=== PATIENT | female | born 1990 ===

== ENCOUNTER 2017-03-19 02:14 | Emergency (ER) | payer MEDICAID ==
[2017-03-19 02:14] VITALS: BMI 34.2
[2017-03-19 02:31] VITALS: BP 110/63; PULSE 92; RESP 15; TEMP 98.7; O2SAT 98
--- NOTE | 2017-03-19 02:48 | ED PDOC ---
HPI: Abdomen Time Seen by Provider: 03/19/17 02:27 Chief Complaint (Nursing): Abdominal Pain Chief Complaint (Provider): Abdominal Pain History Per: Patient History/Exam Limitations: no limitations Onset/Duration Of Symptoms: Mins (CARDIOLOGY TECH) Outside of [place] travel?: No Current Symptoms Are (Timing): Better Pain Scale Rating Of: 2 (10 at start, 2 by time of ED arrival) Location Of Pain/Discomfort: Epigastric Quality Of Discomfort: Burning Additional Complaint(s): 27 year old female presents to ED with complaints of epigastric burning pain status post eating spicy red sauce CARDIOLOGY TECH. Patient states that the pain was so severe that she called EMS, but by the time she arrived at the ED the pain level decreased from a 10 to a 2. Notes that discovery of yesterday. ( -) lower abdominal pain, vaginal bleeding, or vaginal discharge. PCP: JULIANA Abnormal Vaginal Bleeding: No Past Medical History Reviewed: Historical Data, Nursing Documentation, Vital Signs Vital Signs: Last Vital Signs Temp 98.7 F 03/19/17 02:28 Pulse 92 H 03/19/17 02:28 Resp 15 03/19/17 02:28 BP 110/63 03/19/17 02:28 Pulse Ox 98 03/19/17 02:51 - Family History Family History: States: Unknown Family Hx - Home Medications Home Medications: Ambulatory Orders Medication Instructions Recorded Ibuprofen 800 mg PO Q6 11/30/15 Docusate [Colace] 100 mg PO BID #60 cap 12/01/15 Magnesium Citrate [Citrate of 300 ml PO ONCE PRN #1 solution 12/01/15 Magnesia] Cephalexin [Keflex] 500 mg PO TID #15 capsule 08/28/16 Phenazopyridine HCl [Pyridium] 100 mg PO BID PRN #6 tablet 08/28/16 Metronidazole [Flagyl] 500 mg PO BID #14 tablet 10/23/16 Famotidine [Pepcid] 20 mg PO BID #20 tab 03/19/17 Multivit/Folic Acid/I 1 tab PO DAILY #30 tab 03/19/17 [ Plus] - Allergies Allergies/Adverse Reactions: Allergies Allergy/AdvReac Type Severity Reaction Status Date / Time No Known Allergies Allergy Verified 09/24/16 20:26 Review of Systems ROS Statement: Except As Marked, All Systems Reviewed And Found Negative Gastrointestinal: Positive for: Abdominal Pain ((+) epigastric pain, (-) lower abdominal pain) Genitourinary Female: Negative for: Vaginal Discharge, Vaginal Bleeding Physical Exam - Reviewed Nursing Documentation Reviewed: Yes Vital Signs Reviewed: Yes - Physical Exam Appears: Positive for: Non-toxic, No Acute Distress Skin: Positive for: Normal Color, Warm, Dry Cardiovascular/Chest: Positive for: Regular Rate, Rhythm Respiratory: Positive for: Normal Breath Sounds. Negative for: Respiratory Distress Gastrointestinal/Abdominal: Positive for: Normal Exam, Soft. Negative for: Tenderness Extremity: Negative for: Deformity Neurologic/Psych: Positive for: Alert, Oriented. Negative for: Motor/Sensory Deficits - ECG O2 Sat by Pulse Oximetry: 98 (RA) Pulse Ox Interpretation: Normal Medical Decision Making Medical Decision Makin Initial impression: GERD and Initial plan: * Pepcid 10mg PO 0245 Patient is declining US at this time and will follow up with [facility]. Patient is medically stable for discharge. Scribe Attestation: Documented by Sheila Kumar acting as a scribe for Jaspreet Elizondo MD. Scribe Attestation: All medical record entries made by the Scribe were at my direction and personally dictated by me. I have reviewed the chart and agree that the record accurately reflects my personal performance of the history, physical exam, medical decision making, and the department course for this patient. I have also personally directed, reviewed, and agree with the discharge instructions and disposition. Disposition - Clinical Impression Clinical Impression: Epigastric pain - Disposition [facility] Disposition: Routine/Home Disposition Time: 02:45 Condition: STABLE Prescriptions: Famotidine [Pepcid] 20 mg PO BID #20 tab Multivit/Folic Acid/I [ Plus] 1 tab PO DAILY #30 tab Instructions: (ED), Gastroesophageal Reflux Disease (ED)
== END 2017-03-19 02:55 | disposition home or self-care (01) ==
LOC: H.ER 02:14
DX: K21.9 Gastro-esophageal reflux disease without esophagitis (principal); Z33.1 Pregnant state, incidental; R10.13 Epigastric pain

== ENCOUNTER 2017-03-29 16:51 | Emergency (ER) | payer MEDICAID ==
[2017-03-29 16:53] VITALS: BMI 34.2
[2017-03-29 17:08] VITALS: PULSE 105; RESP 20; TEMP 98.2; O2SAT 98
[2017-03-29 18:31] VITALS: BP 109/72
--- NOTE | 2017-03-29 18:33 | ED PDOC ---
HPI: Female Pain Time Seen by Provider: 03/29/17 17:51 Chief Complaint (Nursing): Female Genitourinary Chief Complaint (Provider): Vaginal bleeding in History Per: Patient History/Exam Limitations: no limitations Onset/Duration Of Symptoms: Days (3) Current Symptoms Are (Timing): Still Present Additional Complaint(s): presents with vaginal bleeding x 3 days. Pt states she had a (+) test 2 weeks ago. LMP 02/11/17. Pt reports mild suprapubic cramping. Pt reports seeing clots today and reports bleeding less than menses. Abnormal Vaginal Bleeding: Yes Past Medical History Reviewed: Historical Data, Nursing Documentation, Vital Signs Vital Signs: Last Vital Signs Temp 98.2 F 03/29/17 17:04 Pulse 105 H 03/29/17 17:04 Resp 20 03/29/17 17:04 BP 109/72 03/29/17 18:14 Pulse Ox 98 03/29/17 17:04 - Medical History PMH: No Chronic Diseases - Surgical History Surgical History: No Surg Hx - Family History Family History: States: Unknown Family Hx - Living Arrangements Living Arrangements: With Family - Social History Current smoker - smoking cessation education provided: No Alcohol: None Drugs: Denies - Home Medications Home Medications: Ambulatory Orders Medication Instructions Recorded No Known Home Med 03/29/17 - Allergies Allergies/Adverse Reactions: Allergies Allergy/AdvReac Type Severity Reaction Status Date / Time No Known Allergies Allergy Verified 03/29/17 17:48 Review of Systems ROS Statement: Except As Marked, All Systems Reviewed And Found Negative Genitourinary Female: Positive for: Vaginal Bleeding, Pelvic Pain Physical Exam - Reviewed Nursing Documentation Reviewed: Yes Vital Signs Reviewed: Yes - Physical Exam Appears: Positive for: Well, Non-toxic, No Acute Distress Head Exam: Positive for: ATRAUMATIC, NORMAL INSPECTION, NORMOCEPHALIC Skin: Positive for: Normal Color, Warm, DRY Eye Exam: Positive for: Normal appearance ENT: Positive for: Normal ENT Inspection Neck: Positive for: Normal, Painless ROM Cardiovascular/Chest: Positive for: Regular Rate, Rhythm Respiratory: Positive for: Normal Breath Sounds. Negative for: Accessory Muscle Use, Respiratory Distress Gastrointestinal/Abdominal: Positive for: Normal Exam, Bowel Sounds, Soft. Negative for: Tenderness Back: Positive for: Normal Inspection Extremity: Positive for: Normal ROM Neurologic/Psych: Positive for: Alert, Oriented - Laboratory Results Result Diagrams: 03/29/17 18:18 03/29/17 18:18 Urine POC: Positive - ECG O2 Sat by Pulse Oximetry: 98 Medical Decision Making Medical Decision Making: Endorsed pending US at 2000. Disposition - Clinical Impression Clinical Impression: Vaginal bleeding in - Patient ED Disposition Is Patient to be Admitted: Transfer of Care - Disposition Disposition: Transfer of Care Disposition Time: 19:52 Condition: GOOD
[2017-03-29 18:36] LABS: HEMATOCRIT 38.5 % (34.0-47.0); MEAN CELL VOLUME 84.2 fl (81.0-99.0); MEAN CORPUSCULAR HEMOGLOBIN 27.6 pg (27.0-31.0); MEAN CORPUSCULAR HGB CONC 32.8 g/dL (33.0-37.0); RED CELL DISTRIBUTION WIDTH 12.7 % (11.5-14.5); WHITE BLOOD COUNT 7.4 K/uL (4.8-10.8)
[2017-03-29 18:42] LABS: ALB/GLOB RATIO 1.3 (1.0-2.1); ALKALINE PHOSPHATASE 47 U/L (38-126); ALT/SGPT 31 U/L (9-52); AST/SGOT 21 U/L (14-36); BILIRUBIN,TOTAL 0.9 mg/dl (0.2-1.3); BLOOD UREA NITROGEN 11 mg/dl (7-17); CALCIUM 9.4 mg/dL (8.4-10.2); CARBON DIOXIDE 25 mmol/L (22-30); CHLORIDE 106 mmol/L (98-107); GFR AFRICAN-AMERICAN > 60; GLUCOSE,RANDOM 81 mg/dL (65-105); POTASSIUM 3.7 MMOL/L (3.6-5.0); SODIUM 141 mmol/l (132-148); TOTAL PROTEIN 7.4 G/DL (6.3-8.2)
[2017-03-29 18:43] LABS: RBC URINE 19 /hpf (0-3); URINE BACTERIA RARE (<OCC); URINE BILIRUBIN NEGATIVE (NEGATIVE); URINE BLOOD NEGATIVE (NEGATIVE); URINE COLOR YELLOW (YELLOW); URINE GLUCOSE (UA) NEG (Normal); URINE KETONE NEGATIVE (NEGATIVE); URINE LEUKOCYTE ESTERASE LARGE Leu/uL (Negative); URINE PROTEIN NEGATIVE (NEGATIVE); URINE UROBILINOGEN 0.2-1.0 mg/dL (0.2-1.0); WBC URINE 11 /hpf (0-5)
--- NOTE | 2017-03-29 20:31 | ED PDOC ---
- Laboratory Results Result Diagrams: 03/29/17 18:18 03/29/17 18:18 Urine POC: Positive - ECG O2 Sat by Pulse Oximetry: 98 Medical Decision Making Medical Decision Making: Case endorsed to typewriter mechanic from [employer] at 20:00 pending US and re-eval HPI: Female Pain Time Seen by Provider: 03/29/17 17:51 Chief Complaint (Nursing): Female Genitourinary Chief Complaint (Provider): Vaginal bleeding in History Per: Patient History/Exam Limitations: no limitations Onset/Duration Of Symptoms: Days (3) Current Symptoms Are (Timing): Still Present Additional Complaint(s): presents with vaginal bleeding x 3 days. Pt states she had a (+) test 2 weeks ago. LMP 02/11/17. Pt reports mild suprapubic cramping. Pt reports seeing clots today and reports bleeding less than menses. Abnormal Vaginal Bleeding: Yes Beta resulted 3279 Hgb and Hct WNL Blood type A+ US IMPRESSION: No intrauterine or ectopic gestation identified Correlation with serial beta-hCG levels advised Pt educated on results and demonstrated full understanding. No pain at this time , no abdominal tenderness Pt advised to repeat Beta in 2 days Return to ED if at anytime pain or bleeding become severe Disposition - Clinical Impression Clinical Impression: Vaginal bleeding in - POA Present On Arrival: None - Disposition Disposition: Routine/Home Disposition Time: 21:40 Condition: GOOD Additional Instructions: Follow up in 2 days for repeat Beta Instructions: Threatened Miscarriage (ED)
--- NOTE | 2017-03-29 21:00 | US ---
EXAM: US , Transvaginal CLINICAL HISTORY: 27 years old, female; Signs and symptoms; Lmp or gestational age (in weeks): 02/14/2017; Other: Vag bleeding; ; Additional info: Vaginal bleeding since , 03/29/17; her hCG level of 3279.60 TECHNIQUE: Real-time transvaginal obstetrical ultrasound of the maternal pelvis and a first trimester with image documentation. Transvaginal imaging was used for better evaluation of the fetus and adnexa. EXAM DATE/TIME: 03/29/2017 6:03 PM COMPARISON: There are no prior studies for comparison. FINDINGS: Uterus: Uterus measures approximately 8.6 x 4.6 x 6.4 cm. Endometrium measures approximately 8 mm in width. There is no intrauterine gestation. Cervix is closed Ovaries: Right ovary measures approximately 3.19 x 1.79 x 2.75 cm. Left ovary measures approximately 2.23 x 1.43 x 2.18 cm. There are follicles in both ovaries. There is flow in both ovaries on Doppler imaging. Free fluid: No free fluid. IMPRESSION: No intrauterine or ectopic gestation identified Correlation with serial beta-hCG levels advised
== END 2017-03-29 21:49 | disposition home or self-care (01) ==
LOC: H.ER 16:51
DX: O20.0 Threatened abortion (principal)

== ENCOUNTER 2017-04-11 21:35 | Emergency (ER) | payer MEDICAID ==
[2017-04-11 21:36] VITALS: BMI 34.2
[2017-04-11 21:47] VITALS: BP 113/66; PULSE 85; RESP 16; TEMP 97.6; O2SAT 99
[2017-04-11] MEDS ORDERED: Lactated Ringer's 1,000 ML IV STA (22:06)
--- NOTE | 2017-04-11 22:21 | ED PDOC ---
HPI: Female Pain Chief Complaint (Provider): vaginal bleeidng History Per: Patient History/Exam Limitations: no limitations Onset/Duration Of Symptoms: Days, Gradual Current Symptoms Are (Timing): Still Present Severity: Mild Pain Scale Rating Of: 2 Quality Of Discomfort: Cramping Associated Symptoms: denies: Fever, Chills, Nausea, Vomiting, Diarrhea, Loss Of Appetite, Constipation, Urinary Symptoms Alleviating Factors: None Additional History Per: Patient Additional Complaint(s): 27 y/o presenting today with vaginal bleeding x 1.5 weeks. Pt states she had a (+) test 03/29/17 at [facility], was instructed to follow up for bloodwork in 2 days after discharge which she was unable to do. LMP . Pt reports mild suprapubic cramping but no abd pain. Pt reports seeing clots today, used 2 pads today only. Denies f/c/n/v/cp/sob/ abd pain/syncope/focal weakness. PMD: none Meds: none Allergies: NKDA PMH: none PSH: D&C x 2 (last Oct 2016) SH: denies tob, drugs, social etoh Abnormal Vaginal Bleeding: Yes Last Menstral Period: 02/14/17 <Andres Worley - Last Filed: 04/12/17 02:22> <Dominique Munoz - Last Filed: 04/12/17 15:36> Time Seen by Provider: 04/11/17 21:51 Chief Complaint (Nursing): Female Genitourinary Supervising Attending Note - Supervising Attending Note The Documented history was done by the: Physician Employment Director, Attending Physician The documented physical exam was done by the: Physician Employment Director, Attending Physician - Attestation: I have personally seen and examined this patient.: Yes I have fully participated in the care of the patient.: Yes I have reviewed all pertinent clinical information, including history, physical exam and plan: Yes <Dominqiue Munoz - Last Filed: 04/12/17 15:36> Past Medical History Vital Signs: Last Vital Signs Temp 97.6 F 04/11/17 21:41 Pulse 85 04/11/17 21:41 Resp 16 04/11/17 21:41 BP 113/66 04/11/17 21:41 Pulse Ox 99 04/11/17 21:41 - Medical History PMH: No Chronic Diseases - Family History Family History: States: Unknown Family Hx - Social History Current smoker - smoking cessation education provided: No <Andres Worley - Last Filed: 04/12/17 02:22> Vital Signs: Last Vital Signs Temp 97.6 F 04/11/17 21:41 Pulse 85 04/11/17 21:41 Resp 16 04/11/17 21:41 BP 113/66 04/11/17 21:41 Pulse Ox 99 04/12/17 02:24 <Dominique Munoz - Last Filed: 04/12/17 15:36> - Home Medications Home Medications: Ambulatory Orders Medication Instructions Recorded No Known Home Med 03/29/17 - Allergies Allergies/Adverse Reactions: Allergies Allergy/AdvReac Type Severity Reaction Status Date / Time No Known Allergies Allergy Verified 03/29/17 17:48 Review of Systems Constitutional: Negative for: Fever, Chills, Weakness Respiratory: Negative for: Cough, Shortness of Breath, Wheezing Gastrointestinal: Negative for: Nausea, Vomiting, Diarrhea, Hematochezia, Hematemesis Genitourinary Female: Positive for: Vaginal Bleeding, Pelvic Pain (cramping suprapubic pain). Negative for: Dysuria, Vaginal Discharge Skin: Negative for: Rash <Andres Worley - Last Filed: 04/12/17 02:22> Physical Exam - Physical Exam Appears: Positive for: Well, No Acute Distress Head Exam: Positive for: ATRAUMATIC Cardiovascular/Chest: Positive for: Regular Rate, Rhythm Respiratory: Positive for: Normal Breath Sounds. Negative for: Wheezing, Respiratory Distress Gastrointestinal/Abdominal: Positive for: Soft. Negative for: Tenderness, Distended, Guarding Back: Negative for: L CVA Tenderness, R CVA Tenderness Neurologic/Psych: Positive for: Alert, Oriented <Andres Worley - Last Filed: 04/12/17 02:22> - Laboratory Results Result Diagrams: 04/11/17 23:14 - ECG O2 Sat by Pulse Oximetry: 99 - Progress ED Course And Treament: Vaginal Bleeding in patient complete A positive ( old type and screen reviewed) U preg, UA, cbc, quant BHCG TVUS: no live IUP BHCG elevated patient to follow in 2 days for serial repeat quant BHCG ER precautions discussed, verbalizes understanding Re-evaluation Time: 01:35 Condition: Re-examined, Improved <Andres Worley - Last Filed: 04/12/17 02:22> - Laboratory Results Result Diagrams: 04/11/17 23:14 <Dominique Munoz - Last Filed: 04/12/17 15:36> Disposition - Disposition Disposition Time: 02:24 <Andres Worley - Last Filed: 04/12/17 02:22> - Disposition Disposition: Transfer of Care Disposition Time: 00:00 Patient Signed Over To: Donna Barker Handoff Comments: Pending ER workup reassesment and final ER disposition <Dominique Munoz - Last Filed: 04/12/17 15:36> - Clinical Impression Clinical Impression: , complete - Disposition Referrals: Martina Antonio MD [Staff Provider] - Condition: STABLE Additional Instructions: follow up with [facility] follow up in ED in 1-2 days for serial BHCG bloodwork ER precautions given and verbalized Instructions: Spontaneous Miscarriage (ED), Complications of Infection (GEN)
[2017-04-12 00:15] LABS: HEMOGLOBIN 12.7 g/dL (12.0-16.0); MEAN CORPUSCULAR HGB CONC 33.4 g/dL (33.0-37.0); RBC 4.53 Mil/uL (3.80-5.20); RED CELL DISTRIBUTION WIDTH 12.8 % (11.5-14.5); WHITE BLOOD COUNT 7.6 K/uL (4.8-10.8)
--- NOTE | 2017-04-12 00:48 | US ---
EXAM: US , Transvaginal CLINICAL HISTORY: 27 years old, female; Signs and symptoms; Lmp or gestational age (in weeks): 02/13/2017; Other: Vag bleeding since03/29/2017; Additional info: Vb x 1 week TECHNIQUE: Real-time transvaginal obstetrical ultrasound of the maternal pelvis and a first trimester with image documentation. Transvaginal imaging was used for better evaluation of the fetus and adnexa. COMPARISON: US - OB TRANSVAGINAL 03/29/2017 7:52:10 PM FINDINGS: Gestation: No intrauterine gestation is identified. The endometrial stripe measures 5.5 mm Placenta/amniotic fluid: Not applicable. Uterus/cervix: Unremarkable in echogenicity and size measuring 7.8 x 6.3 x 4.4 cm. No myometrial mass. Ovaries: The bilateral ovaries are unremarkable in echogenicity and size. The right ovary measures 2.9 x 2.6 x 1.6 cm. The left measures 2.6 x 3.2 x 1.1 cm. Normal Doppler flow flow is detected. Free fluid: No free fluid. IMPRESSION: No intrauterine gestation is identified, despite a beta hCG of 8393.4 No free fluid. Normal bilateral ovaries.
[2017-04-13 17:02] LABS: URINE BILIRUBIN NEGATIVE (NEGATIVE); URINE BLOOD LARGE (NEGATIVE); URINE CLARITY SLIGHT-CLOUDY (Clear); URINE COLOR YELLOW (YELLOW); URINE GLUCOSE (UA) NEGATIVE (Normal)
[2017-04-13 17:03] LABS: SQUAMOUS EPITHIAL 1 /hpf (0-5); URINE BACTERIA RARE (<OCC); URINE LEUKOCYTE ESTERASE TRACE Leu/uL (Negative); URINE NITRATE NEGATIVE (NEGATIVE); URINE PROTEIN 30 mg/dL (NEGATIVE); URINE UROBILINOGEN 0.2 mg/dL (0.2-1.0)
== END 2017-04-12 02:15 | disposition home or self-care (01) ==
LOC: H.ER 21:35
DX: O03.9 Complete or unspecified spontaneous abortion without complication (principal)

== ENCOUNTER 2018-11-12 16:01 | Emergency (ER) | payer MEDICAID ==
--- NOTE | 2018-11-12 17:24 | ED PDOC ---
HPI: Influenza Time Seen by Provider: 11/12/18 16:57 Chief Complaint: Flu-like Symptoms Chief Complaint (Provider): Flu-like symptoms History Per: Patient Symptoms include: headache, bodyaches, cough Additional complaint(s):: 28 year old female presents to the ED complaining of flu like symptoms. Patient presents with 2 children and boyfriend who are complaining of similar symptoms. Patient reports yesterday she was having abdominal pain [facility] which showed free fluid on the right side. Patient was treated for abdominal pain and was discharged. After getting home, patient began having a fever, coughing, headache, and bodyaches. She states she has been having decreased appetite and has been nauseous. Denies getting a flu vaccine. PMD: none provided Past Medical History Reviewed: Historical Data, Nursing Documentation, Vital Signs Vital Signs: Last Vital Signs Temp 98.5 F 11/12/18 16:51 Pulse 97 H 11/12/18 16:51 Resp 18 11/12/18 16:51 BP 108/71 11/12/18 16:51 Pulse Ox 100 11/12/18 16:51 - Medical History PMH: No Chronic Diseases - Surgical History Surgical History: No Surg Hx - Family History Family History: States: Unknown Family Hx - Home Medications Home Medications: Ambulatory Orders Medication Instructions Recorded RX: No Known Home Med 03/29/17 Oseltamivir Cap [Tamiflu] 75 mg PO BID #10 cap 11/12/18 RX: Ibuprofen [Motrin Tab] 600 mg PO Q6 PRN #15 tab 11/12/18 - Allergies Allergies/Adverse Reactions: Allergies Allergy/AdvReac Type Severity Reaction Status Date / Time No Known Allergies Allergy Verified 11/15/18 13:19 Review of Systems ROS Statement: Except As Marked, All Systems Reviewed And Found Negative Constitutional: Positive for: Other (Bodyaches) Respiratory: Positive for: Cough Gastrointestinal: Positive for: Nausea, Abdominal Pain Neurological: Positive for: Headache Physical Exam - Reviewed Nursing Documentation Reviewed: Yes Vital Signs Reviewed: Yes - Physical Exam Appears: Positive for: Non-toxic, No Acute Distress Head Exam: Positive for: ATRAUMATIC, NORMOCEPHALIC Skin: Positive for: Normal Color, Warm, Dry Eye Exam: Positive for: Normal appearance Neck: Positive for: Normal, Painless ROM Cardiovascular/Chest: Positive for: Regular Rate, Rhythm Respiratory: Positive for: Normal Breath Sounds. Negative for: Wheezing, Respiratory Distress Gastrointestinal/Abdominal: Positive for: Normal Exam, Soft. Negative for: T enderness Extremity: Positive for: Normal ROM Neurologic/Psych: Positive for: Alert, Oriented. Negative for: Motor/Sensory Deficits Medical Decision Making Medical Decision Making: Initial Plan: --Motrin 600mg PO --Tamiflu 75mg PO otherwise well appearing, followup PMD, flu precautions, indications for return discussed. Scribe Attestation: Documented by Syed Silva acting as a scribe for Regan Natarajan III, DO. Provider Scribe Attestation: All medical record entries made by the Scribe were at my direction and personally dictated by me. I have reviewed the chart and agree that the record accurately reflects my personal performance of the history, physical exam, medical decision making, and the department course for this patient. I have also personally directed, reviewed, and agree with the discharge instructions and disposition. - ECG O2 Sat by Pulse Oximetry: 100 Disposition - Clinical Impression Clinical Impression: Influenza-like symptoms - Patient ED Disposition Is Patient to be Admitted: No Counseled Patient/Family Regarding: Studies Performed, Diagnosis, Need For Followup, Rx Given - Disposition Referrals: Jesus Alberto Muller MD [Medical Doctor] - Disposition: Routine/Home Disposition Time: 18:01 Condition: STABLE Additional Instructions: Drink plenty of fluids. Use tamiflu 2x daily as directed. Return to ER for any worse or new symptoms. Use motrin or tylenol for fever. Prescriptions: RX: Ibuprofen [Motrin Tab] 600 mg PO Q6 PRN #15 tab PRN Reason: Pain, Moderate (4-7) Oseltamivir Cap [Tamiflu] 75 mg PO BID #10 cap Instructions: Flu, Adult (DC) Forms: [employer] ([place]), [facility] ED School/Work Excuse
[2018-11-12 19:07] VITALS: BP 123/77; PULSE 81; RESP 20; TEMP 98
[2018-11-17 14:07] VITALS: O2SAT 100
== END 2018-11-12 19:55 | disposition home or self-care (01) ==
LOC: H.ER 16:01 → MERGE 16:01 → H.ER 19:55
DX: J11.1 Influenza due to unidentified influenza virus with other respiratory manifestations (principal)